=== PATIENT | male | born 1990 ===

== ENCOUNTER 2023-05-07 08:56 | Emergency (ER) | payer OTHER, SELFPAY ==
[2023-05-07 09:00] VITALS: BP 125/84; PULSE 90; RESP 18; TEMP 37.1; O2SAT 98; BMI 30.3
--- NOTE | 2023-05-07 09:13 | CRLHL7_ITS ---
For Patients: As a result of the Cures Act, medical imaging exams and procedure reports are released immediately into your electronic medical record. You may view this report before your referring provider. If you have questions, please contact your health care provider. Indication: Pain in right 4th finger. Technique: Right 4th digit, 3 views. Comparison: None. Findings: Bones: Alignment is normal. No fractures or bone lesions. Joint spaces: Unremarkable. Soft tissues: Unremarkable. Impression: Normal right 4th finger radiographs. Dictated by Vida Castelan MD @ 05/07/2023 10:00:36 AM (Electronically Signed)
--- NOTE | 2023-05-07 09:14 | ED_ITS ---
HPI - General Adult General Time Seen by Provider: 09:14 Date Seen: 05/07/23 Chief complaint: Extremity Pain/Injury, Upper Stated complaint: finger injury Time Seen by Provider: 05/07/23 09:07 Source: patient Mode of arrival: ambulatory Limitations: no limitations History of Present Illness HPI narrative: Patient is a 32-year-old male caught his right ring finger tip between the tire and a rim. It has been swollen and he has bleeding under the nail. He has had a good amount of discomfort. He presents to ED for evaluation. He is not sure when his last tetanus shot was. He generally reports good health. He does take Seroquel and Adderall. For ADHD. He is allergic to penicillin as tolerated most medicines well however Related Data Home Medications Medication Instructions Recorded Confirmed dextroamphetamine-amphetamine 15 1 tab PO DAILY 05/07/23 05/07/23 mg tablet (Adderall) dextroamphetamine-amphetamine ER 1 cap PO QAM 05/07/23 05/07/23 15 mg 24hr capsule,extend release quetiapine 25 mg tablet mg PO 05/07/23 Previous Rx's Medication Instructions Recorded cephalexin 500 mg capsule 500 mg PO QID #20 caps 05/07/23 hydrocodone 7.5 mg-acetaminophen 1 tab PO Q8H PRN pain #14 tabs 05/07/23 325 mg tablet Allergies Allergy/AdvReac Type Severity Reaction Status Date / Time Penicillins Allergy Verified 05/07/23 09:04 Review of Systems Status of ROS: Reports: 6 or more systems reviewed and unremarkable except as noted in History and below PFSH PFS Social History Smoking Status: Current every day smoker Do you use any of these nicotine containing products: Vaping Products Second hand tobacco smoke exposure: No How often do you have a drink containing alcohol: never How often do you have six or more drinks on one occasion: Never AUDIT-C Alcohol total score: 0 Non-prescribed substance use: denies use Exam Narrative: Exam Narrative: Objective: Vital signs unremarkable patient is in mild distress and discomfort His right hand shows a subdural hematoma on the 4th finger, and some soft tissue bruising over the distal tip of the finger. There is no marked open wounds., distal CMS is intact, patient reports the tip of the finger feels somewhat numb. No other injuries of the hand noted Const: Vital Signs, click to edit/add: Vital Signs - 24 hr 05/07/23 09:00 Temperature 98.7 F Pulse Rate [Right Pulse Oximeter] 90 Respiratory Rate 18 Blood Pressure [Ri ght Upper Arm] 125/84 Pulse Oximetry 98 Oxygen Delivery Me thod Room Air Course Vital Signs Vital signs: Initial Vital Signs Temperature 98.7 F 05/07/23 09:00 Temperature Source Temporal Artery Scan 05/07/23 09:00 Pulse Rate 90 05/07/23 09:00 Respiratory Rate 18 05/07/23 09:00 Blood Pressure 125/84 05/07/23 09:00 Blood Pressure Mean 97 05/07/23 09:00 Blood Pressure Position Sitting 05/07/23 09:00 Pulse Oximetry 98 05/07/23 09:00 Oxygen Delivery Method Room Air 05/07/23 09:00 Vital Signs Temperature 98.7 F 05/07/23 09:00 Pulse Rate 90 05/07/23 09:00 Respiratory Rate 18 05/07/23 09:00 Blood Pressure 125/84 05/07/23 09:00 Pulse Oximetry 98 05/07/23 09:00 Oxygen Delivery Method Room Air 05/07/23 09:00 Temperature 98.7 F 05/07/23 09:00 Pulse Rate 90 05/07/23 09:00 Respiratory Rate 18 05/07/23 09:00 Blood Pressure 125/84 05/07/23 09:00 Pulse Oximetry 98 05/07/23 09:00 Oxygen Delivery Method Room Air 05/07/23 09:00 Medical Decision Making MDM Narrative Medical decision making narrative: 32-year-old male with right 4th finger distal phalanx injury. Subungual hematoma. After sterile cleansing they hot tip cautery was used to open the subungual hematoma he tolerated this well and had good expression of blood. The patient will get an x-ray, will start him on Keflex 500 q.i.d. x5 days, given some oral [place] and update his tetanus Tdap. He will need to be off work for few days, pain control, observation, and recheck with primary care in 2 days for reassessment. Will review the x-ray when it returns. Addendum: 9:38 a.m.: Patient has an x-ray that by my review looks largely unremarkable for fracture. No foreign body. Patient will get [place], can use Advil, keep covered for the next few hours then may soak in soapy water. Light activity no use of the hand for couple of days. And then recheck with primary care. Patient declines a tetanus shot Discharge Plan Discharge Clinical Impression: Finger injury, Subungual hematoma Patient Disposition: Home w/ Parent or Adult Condition: Improved Additional Instructions: No use of the right hand for 2 days until seen by primary care. [place] as needed for pain, may use Advil as well. Keflex 500 q.i.d. x5 days for potential infection. Off work for 2 days and then recheck with primary care as mention. Return sooner as needed. Activity Level: Light activity Discharge Diet: Regular Prescriptions: New hydrocodone-acetaminophen 7.5-325 mg tablet 1 tab PO Q8H PRN (Reason: pain) Qty: 14 0RF cephalexin 500 mg capsule 500 mg PO QID Qty: 20 0RF No Action quetiapine 25 mg tablet PO dextroamphetamine-amphetamine [Adderall] 15 mg tablet 1 tab PO DAILY dextroamphetamine-amphetamine 15 mg capsule,extended release 24hr 1 cap PO QAM Stand Alone Forms: [employer] Info Instructions
[2023-05-07] MEDS: HYDROCODONE/ACETAMIN 7.5-325 TABLET 1 TAB PO (09:29)
[2023-05-07] MEDS: cephALEXin 500 MG CAPSULE PO (09:29)
--- NOTE | 2023-05-07 09:35 | ED.NURSE ---
Pt declines TDAP vaccine at this time. Pt educated about the benefit of receiving TDAP post-injury, pt continues to refuse TDAP vaccine at this time. MD Naylor notified.
--- NOTE | 2023-05-07 09:56 | ED.NURSE ---
bacitracin appliedto lac on pt R ring finger, lac then bandaged with telfa and tube gauze.
== END 2023-05-07 09:58 | disposition home or self-care (01) ==
LOC: ED 09:33
PROVIDERS: Emergency Provider Family Medicine
DX: S60.141A Contusion of right ring finger with damage to nail, initial encounter (principal); W23.0XXA Caught, crushed, jammed, or pinched between moving objects, initial encounter
CPT/HCPCS: 11740; 73140; 90471; 99284; A9270